=== PATIENT | female | born 1985 | race Two or more races ===

== ENCOUNTER 2023-06-29 00:22 | Inpatient (IN) | payer OTHER ==
[~2023-06-29] VITALS: Ht 160 cm; Wt 77.1 kg
[2023-06-29 01:31] LABS: PH,URINE 6.5 (5.0-8.0); URINE APPEARANCE Clear; URINE BILIRRUBIN Negative (NEGATIVE); URINE BLOOD Negative; URINE COLOR Yellow; URINE GLUCOSE Negative (NEGATIVE); URINE LEUKOCYTE Negative; URINE NITRATE Negative; URINE PROTEIN Negative (NEGATIVE); URINE UROBILINOGEN 0.2 E.U./dl
[2023-06-29 01:34] LABS: URINE BACTERIA 677.5 uL (0.0-1933); URINE EPITHELIAL CELLS 10.3 uL (0.0-38.8); URINE RBC 2.2 uL (0.0-20.8); URINE WBC 13.4 uL (0.0-23.2)
[2023-06-29 01:36] LABS: HEMATOCRIT 32.8 % (36.0-45.00); MEAN CORPUSCULAR HGB CONC 33.4 g/dl (32.0-36.0); PLATELET COUNT 351 K/uL (150-450); RED BLOOD COUNT 3.42 M/uL (4.00-6.00); RED CELL DISTRIBUTION WIDTH 12.9 % (11.5-14.5)
[2023-06-29 01:39] LABS: HEMOGLOBIN 10.9 g/dL (12.0-15.00); MEAN CORPUSCULAR HEMOGLOBIN 31.8 pg (27.00-32.0)
[2023-06-29 01:49] LABS: INR 0.96; PARTIAL THROMBOPLASTIN TIME 27.6 SECONDS (22.0-34.0); PROTHROMBIN TIME 10.1 SECONDS (9.0-11.5)
[2023-06-29] MEDS ORDERED: LEVOTHYROXINE25 MCG PO (01:50)
[2023-06-29] MEDS ORDERED: ASA81 MG PO (01:51)
[2023-06-29] MEDS ORDERED: INTEGRA PLUS C1 EACH PO (01:52)
[2023-06-29] MEDS ORDERED: PRENA1 TRUE CO1 EACH PO (01:53)
[2023-06-29 01:59] LABS: ALKALINE PHOSPHATASE 76 U/L (50-136); ALT/SGPT 24 U/L (12-78); ANION GAP 10 (10.0-20.0); AST/SGOT 13 U/L (15-37); BILIRUBIN TOTAL 0.13 mg/dL (0.3-1.2); BLOOD UREA NITROGEN 11 mg/dL (7-18); BUN CREA RATIO 21 (7.0-25.0); CALCIUM 8.9 mg/dL (8.5-10.1); CARBON DIOXIDE 26 mEq/L (21-32); CHLORIDE 106 mmol/L (98-107); CREATININE SERUM 0.53 mg/dL (0.55-1.02); GLOBULINA 3.5 G/DL (2.4-3.5); GLUCOSE FASTING 91 mg/dL (65-100); OSMOLALITY SERUM 275 MOSM/KG (275-295); POTASSIUM 3.72 mEq/L (3.5-5.1); SODIUM 138 mmol/L (136-145); TOTAL PROTEIN 6.5 gm/dL (6.4-8.2)
[2023-06-30 02:11] LABS: CREATININE URINE 36.1 MG/DL; URINE PROT QUANT 24HR 6.8 MG/DL
[2023-06-30 02:19] LABS: URINE PROT QUANT 24 HR 224.4 MG/24HR (42-225)
[2023-06-30 04:12] LABS: CREATININE SERUM 0.53 mg/dL (0.6-1.0)
[2023-06-30 04:13] LABS: CREATINE CLEARANCE 156.4 ML/MIN (97-137)
== END 2023-06-30 03:16 | disposition home or self-care (01) | DRG 833 ==
LOC: LDR 00:22
PROVIDERS: ADMIT Specialist; ATTEND Specialist
PROC: 4A1HXCZ Monitoring of Products of Conception, Cardiac Rate, External Approach (ICD-10-PCS; principal; 2023-06-29)
PROC: BY4FZZZ Ultrasonography of Third Trimester, Single Fetus (ICD-10-PCS; 2023-06-29)
PROC: BU4CZZZ Ultrasonography of Uterus and Ovaries (ICD-10-PCS; 2023-06-29)
DX: O10.013 Pre-existing essential hypertension complicating pregnancy, third trimester (principal); O13.3 Gestational [pregnancy-induced] hypertension without significant proteinuria, third trimester; O99.283 Endocrine, nutritional and metabolic diseases complicating pregnancy, third trimester; E03.9 Hypothyroidism, unspecified; O99.013 Anemia complicating pregnancy, third trimester; D64.9 Anemia, unspecified; Z3A.29 29 weeks gestation of pregnancy

== ENCOUNTER 2023-08-31 04:35 | Inpatient (IN) | payer OTHER ==
[~2023-08-31] VITALS: Ht 160 cm; Wt 79.8 kg
[~2023-08-31 04:35] MED LIST: ASA81 MG PO; INTEGRA PLUS C1 EACH PO; LEVOTHYROXINE25 MCG PO; PRENA1 TRUE CO1 EACH PO
[2023-08-31 06:19] LABS: URINE APPEARANCE Clear; URINE BILIRRUBIN Negative (NEGATIVE); URINE BLOOD Negative; URINE COLOR Yellow; URINE GLUCOSE Negative (NEGATIVE); URINE LEUKOCYTE Negative; URINE NITRATE Negative; URINE PROTEIN Negative (NEGATIVE); URINE UROBILINOGEN 0.2 E.U./dl
[2023-08-31 06:23] LABS: URINE BACTERIA 198.9 uL (0.0-1933); URINE EPITHELIAL CELLS 6.1 uL (0.0-38.8); URINE WBC 4.1 uL (0.0-23.2)
[2023-08-31 06:32] LABS: URINE RBC 0.5 uL (0.0-20.8)
[2023-08-31 06:48] LABS: INR 0.95; PARTIAL THROMBOPLASTIN TIME 29.3 SECONDS (22.0-34.0)
[2023-08-31 06:51] LABS: ALBUMIN 3.1 gm/dL (3.4-5.0); BILIRUBIN TOTAL 0.2 mg/dL (0.3-1.2); CALCIUM 9.2 mg/dL (8.5-10.1); CREATININE SERUM 0.46 mg/dL (0.55-1.02); GFR 152.03; GLOBULINA 3.5 G/DL (2.4-3.5); POTASSIUM 3.85 mEq/L (3.5-5.1); TOTAL PROTEIN 6.6 gm/dL (6.4-8.2)
[2023-08-31 06:52] LABS: HEMATOCRIT 33.9 % (36.0-45.00); HEMOGLOBIN 11.8 g/dL (12.0-15.00); MEAN CELL VOLUME 93.8 fL (80.00-100.00); MEAN CORPUSCULAR HEMOGLOBIN 32.8 pg (27.00-32.0); PLATELET COUNT 346 K/uL (150-450); RED BLOOD COUNT 3.61 M/uL (4.00-6.00); RED CELL DISTRIBUTION WIDTH 12.7 % (11.5-14.5)
[2023-08-31 15:44] LABS: ABG PH 7.432 (7.35-7.45); ABG PO2 39.6 mmHg (80-100); ABG pCO2 33.6 mmHg (35-45); BASE EXCESS -1.6 mmol/l; BICARBONATE 21.9 mmol/l (23-25); SaO2 76.1 %; Tco2 22.9 mmol/l; o2 21 %
== END 2023-09-02 15:21 | disposition home or self-care (01) | DRG 807 ==
LOC: LDR 04:35 → OB/GYN 13:41
PROVIDERS: ADMIT Specialist; ATTEND Specialist
PROC: 10E0XZZ Delivery of Products of Conception, External Approach (ICD-10-PCS; principal; 2023-08-31)
PROC: 0HQ9XZZ Repair Perineum Skin, External Approach (ICD-10-PCS; 2023-08-31)
PROC: 4A1HXCZ Monitoring of Products of Conception, Cardiac Rate, External Approach (ICD-10-PCS; 2023-08-31)
DX: O70.0 First degree perineal laceration during delivery (principal); Z37.0 Single live birth; Z3A.38 38 weeks gestation of pregnancy; Z20.822 Contact with and (suspected) exposure to COVID-19